=== PATIENT | female | born 1930 | race Caucasian/White ===

== ENCOUNTER 2016-12-18 17:18 | Emergency (ER) | payer OTHER, MEDICARE ==
[2016-12-18 17:26] VITALS: TEMP 97.5; O2SAT 95
--- NOTE | 2016-12-18 18:49 | EDPHY ---
HPI/HX/ROS/PE/MDM Narrative: CHIEF COMPLAINT: Skin tear HPI: The patient is an anticoagulated 86 y/o female complaining of a skin tear to her left kulkarni. She is on Coumadin for atrial fibrillation. She describes opening the car door into her left kulkarni about 2 hours ago. She had enough bleeding that she came to the ED for evaluation. She had been able to walk without issue. She is also requesting an updated tetanus vaccination. REVIEW OF SYSTEMS: Aside from elements discussed in the HPI, a comprehensive 10-point review of systems was reviewed and is negative. PMH: Atrial fibrillation - Coumadin SOCIAL HISTORY: Lives in [place] PHYSICAL EXAM: General:Patient is alert, in no acute distress. Skin: Normal color. No rash. Warm and dry. 3cm curvilinear laceration to left anterior kulkarni with no active bleeding Extremities: Normal appearance. Full range of motion. Neuro: Oriented x3. Normal motor function. Normal sensory function. ED Course: Tetanus vaccination administered. Plan for wound care and discharge home with infection precautions. She agrees with plan. MDM: This patient presents with a minor skin tear to her kulkarni. Her presentation is complicated by anticoagulation therapy, but thankfully there is no active bleeding on my exam. The wound was cleaned and she will be given a pressure wrap. I do not think there is indication for glue at this time. General Time Seen by Provider: 12/18/16 18:44 Initial Vital Signs: Initial Vital Signs Temperature (C) 36.4 C 12/18/16 17:21 Heart Rate 78 12/18/16 17:21 Respiratory Rate 18 12/18/16 17:21 Blood Pressure 120/64 12/18/16 17:21 O2 Sat (%) 95 12/18/16 17:21 O2 Delivery Mode Room Air Allergies/Adverse Reactions: codeine Allergy (Verified 12/18/16 17:20) fentanyl Allergy (Verified 12/18/16 17:20) ibuprofen Allergy (Verified 12/18/16 17:20) morphine Allergy (Verified 12/18/16 17:20) Home Medications: Medication Instructions Recorded LEVOTHYROXINE 05/01/10 Warfarin Sodium [Coumadin 5MG (*)] 01/23/16 Dronedarone HCl [Multaq 400 mg (*)] 400 mg PO BIDMEAL #60 tab 09/29/16 Departure - Departure Disposition: Home, Routine, Self-Care Clinical Impression: Skin tear Condition: Good Instructions: Acute Wound Care (ED), Skin Tear (ED) Additional Instructions: 1. Keep bandage clean and dry for the next 1-2 days. 2. Follow up with your primary care provider for any symptoms not improved over the next 3-4 days. 3. Use Tylenol as directed on the packaging if needed for pain for the next 2-3 days. 4. Return to the ED for signs of infection including fever, dramatic increase in redness or swelling, pus draining from the wound, or severe pain. Referrals: Kenneth Boyer MD [Primary Care Provider] - As per Instructions Report Scribed for: Baldemar Lyons Report Scribed by: Nella Moffett Date of Report: 12/18/16 Time of Report: 18:46 Physician Review and Approval Statement: Portions of this note were transcribed by an ED scribe. I personally performed the history, physical exam, and medical decision making; and confirm the accuracy of the information in the transcribed note.
[2016-12-18 19:21] VITALS: BP 122/78; PULSE 88; RESP 16
== END 2016-12-18 19:22 | disposition home or self-care (01) ==
DX: S81.812A Laceration without foreign body, left lower leg, initial encounter (principal); Z79.01 Long term (current) use of anticoagulants; W22.8XXA Striking against or struck by other objects, initial encounter; Y93.89 Activity, other specified

== ENCOUNTER 2016-12-27 14:31 | Inpatient (IN) | payer OTHER, MEDICARE ==
[2016-12-27] MEDS ORDERED: IPRATROPIUM/ALBUTEROL 3 ML DEYVIAL IH ONE (14:58)
[2016-12-27] MEDS ORDERED: ONDANSETRON 4 MG/2 ML VIAL IVP ONE (15:00)
--- NOTE | 2016-12-27 15:06 | EDPHY ---
H & P Stated Complaint: cough/sob Time Seen by Provider: 12/27/16 14:45 HPI/ROS: CHIEF COMPLAINT: Shortness of breath HISTORY OF PRESENT ILLNESS: Patient is an 86-year-old female who complains of a mild cough and shortness of breath for the last week. She was seen by Dr. Victoria Alvarenga just prior to arrival and sent here for rule out pneumonia. She is not hypoxic. She denies any history of respiratory Disease. She does have a history of atrial fibrillation status post ablation is currently on Multaq. She has not had a fever or sore throat. She does have mild sinus congestion. No headache or abdominal pain. No vomiting or diarrhea. REVIEW OF SYSTEMS: Constitutional: denies: chills, fever, recent illness, recent injury EENTM: denies: blurred vision, double vision, nose congestion Respiratory: See HPI Cardiac: denies: chest pain, irregular heart rate, lightheadedness, palpitations Gastrointestinal/Abdominal: denies: abdominal pain, diarrhea, nausea, vomiting, blood streaked stools Genitourinary: denies: dysuria, frequency, hematuria, pain Musculoskeletal: denies: joint pain, muscle pain Skin: denies: lesions, rash, jaundice, bruising Neurological: denies: headache, numbness, paresthesia, tingling, dizziness, weakness Hematologic/Lymphatic: denies: blood clots, easy bleeding, easy bruising Immunologic/allergic: denies: HIV/AIDS, transplant EXAM: GENERAL: Well-appearing, well-nourished and in no acute distress. HEAD: Atraumatic, normocephalic. EYES: Pupils equal round and reactive to light, extraocular movements intact, sclera anicteric, conjunctiva are normal. ENT: TMs normal, nares patent, oropharynx clear without exudates. Moist mucous membranes. NECK: Normal range of motion, supple without lymphadenopathy or JVD. LUNGS: Mild bilateral wheezing HEART: Regular rate and rhythm without murmurs, rubs or gallops. ABDOMEN: Soft, nontender, normoactive bowel sounds. No guarding, no rebound. No masses appreciated. BACK: No CVA tenderness, no spinal tenderness, step-offs or deformities EXTREMITIES: Normal range of motion, no pitting or edema. No clubbing or cyanosis. NEUROLOGICAL: Cranial nerves II through XII grossly intact. Normal speech, normal gait. 5/5 strength, normal movement in all extremities, normal sensation PSYCH: Normal mood, normal affect. SKIN: Warm, dry, normal turgor, no visible rashes or lesions. Source: Patient Exam Limitations: No limitations - Personal History Current Tetanus/Diphtheria Vaccine: Unsure - Medical/Surgical History Hx Asthma: No Hx Chronic Respiratory Disease: No Hx Diabetes: No Hx Cardiac Disease: Yes Hx Renal Disease: No Hx Cirrhosis: No Hx Alcoholism: No Hx HIV/AIDS: No Hx Splenectomy or Spleen Trauma: No Other PMH: Sinus problems for years. double knee replacements, backs surgery for stenosis. fx rt femur. thyroid. neuropathy. afib/flutter with recent ablation - Family History Significant Family History: Hypertension - Social History Smoking Status: Former smoker Alcohol Use: Sober Drug Use: None Constitutional: Initial Vital Signs Temperature (C) 36.3 C 12/27/16 14:39 Heart Rate 72 12/27/16 14:39 Respiratory Rate 30 H 12/27/16 14:39 Blood Pressure 172/97 H 12/27/16 14:39 O2 Sat (%) 95 12/27/16 14:39 O2 Delivery Mode Room Air O2 (L/minute) 3 Allergies/Adverse Reactions: codeine Allergy (Verified 12/27/16 14:37) fentanyl Allergy (Verified 12/27/16 14:37) ibuprofen Allergy (Verified 12/27/16 14:37) morphine Allergy (Verified 12/27/16 14:37) Home Medications: Medication Instructions Recorded LEVOTHYROXINE 05/01/10 Warfarin Sodium [Coumadin 5MG (*)] 01/23/16 Dronedarone HCl [Multaq 400 mg (*)] 400 mg PO BIDMEAL #60 tab 09/29/16 Medical Decision Making - Diagnostics EKG Interpretation: An EKG obtained and was read and documented in trace view. Please see trace view for full reading and report. Sinus rhythm, no acute ischemic changes ED Course/Re-evaluation: Patient does feel better after a DuoNeb. Her x-ray is consistent with pneumonitis. She has wheezes on a to will treat her with steroids and albuterol and antibiotics. vital signs are stable. We are awaiting the rest of her lab work. 4:30 p.m. we discussed the test results. The patient desaturated to 84% on room air. She is on oxygen now at 93%. She has had the symptoms for 5 days and is outside of the window for Tamiflu. She did receive a dose of antibiotics up front. She she does me criteria for severe sepsis based on her INR although she is on Coumadin. I will give her fluid bolus. She does not meet criteria for septic shock. Differential Diagnosis: Partial list of the Differential diagnosis considered include but were not limited to; influenza, pneumonia, gastritis, diarrhea, sepsis,food poisoning and although unlikely based on the history and physical exam, I also considered urinary tract infection, pneumonia. I discussed these differential diagnoses and the plan with the patient as well as the usual and expected course. The patient understands that the diagnosis is provisional and that in medicine we are not always correct and that further workup is often warranted. Usual and customary warnings were given. All of the patient's questions were answered. The patient was instructed to return to the emergency department should the symptoms at all worsen or return, otherwise to followup with the physician as we discussed. - Data Points Laboratory Results: Laboratory Results 12/27/16 15:10 12/27/16 15:10 12/27/16 12/27/16 12/27/16 15:50 15:10 15:10 WBC RBC Hgb Hct MCV MCH MCHC RDW Plt Count MPV Neut % (Auto) Lymph % (Auto) Door % (Auto) Eos % (Auto) Baso % (Auto) Nucleat RBC Rel Count Absolute Neuts (auto) Absolute Lymphs (auto) Absolute Monos (auto) Absolute Eos (auto) Absolute Basos (auto) Absolute Nucleated RBC Immature Gran % Immature Gran # PT 21.6 SEC H SEC (12.0-15.0) INR 1.87 H (0.83-1.16) APTT 45.3 SEC H SEC (23.0-38.0) D-Dimer 0.44 ug/mLFEU ug/mLFEU (0.00-0.50) VBG Lactic Acid 1.3 mmol/L mmol/L (0.7-2.1) Sodium Potassium Chloride Carbon Dioxide Anion Gap BUN Creatinine Estimated GFR Glucose Calcium Total Bilirubin Troponin I Influenza Typ A,B (DFA) POSITIVE FOR FLU A H (NEGATIVE) 12/27/16 12/27/16 15:10 15:10 WBC 5.91 10^3/uL 10^3/uL (3.80-9.50) RBC 4.06 10^6/uL L 10^6/uL (4.18-5.33) Hgb 12.2 g/dL L g/dL (12.6-16.3) Hct 36.1 % L % (38.0-47.0) MCV 88.9 fL fL (81.5-99.8) MCH 30.0 pg pg (27.9-34.1) MCHC 33.8 g/dL g/dL (32.4-36.7) RDW 13.6 % % (11.5-15.2) Plt Count 175 10^3/uL 10^3/uL (150-400) MPV 10.2 fL fL (8.7-11.7) Neut % (Auto) 75.4 % H % (39.3-74.2) Lymph % (Auto) 12.4 % L % (15.0-45.0) Door % (Auto) 9.1 % % (4.5-13.0) Eos % (Auto) 2.5 % % (0.6-7.6) Baso % (Auto) 0.3 % % (0.3-1.7) Nucleat RBC Rel Count 0.0 % % (0.0-0.2) Absolute Neuts (auto) 4.45 10^3/uL 10^3/uL (1.70-6.50) Absolute Lymphs (auto) 0.73 10^3/uL L 10^3/uL (1.00-3.00) Absolute Monos (auto) 0.54 10^3/uL 10^3/uL (0.30-0.80) Absolute Eos (auto) 0.15 10^3/uL 10^3/uL (0.03-0.40) Absolute Basos (auto) 0.02 10^3/uL 10^3/uL (0.02-0.10) Absolute Nucleated RBC 0.00 10^3/uL 10^3/uL (0-0.01) Immature Gran % 0.3 % % (0.0-1.1) Immature Gran # 0.02 10^3/uL 10^3/uL (0.00-0.10) PT INR APTT D-Dimer VBG Lactic Acid Sodium 134 mEq/L mEq/L (134-144) Potassium 4.7 mEq/L mEq/L (3.5-5.2) Chloride 97 mEq/L mEq/L (97-110) Carbon Dioxide 24 mEq/l mEq/l (22-31) Anion Gap 13 mEq/L mEq/L (8-16) BUN 16 mg/dL mg/dL (7-23) Creatinine 0.9 mg/dL mg/dL (0.6-1.0) Estimated GFR 59 Glucose 94 mg/dL mg/dL (70-100) Calcium 9.8 mg/dL mg/dL (8.5-10.4) Total Bilirubin 1.1 mg/dL mg/dL (0.1-1.4) Troponin I < 0.012 ng/mL ng/mL (0-0.034) Influenza Typ A,B (DFA) Medications Given: Discontinued Medications Albuterol/Ipratropium (Duoneb) 3 ml IH EDNOW ONE Stop: 12/27/16 14:59 Last Admin: 12/27/16 15:05 Dose: 3 ml Sodium Chloride (Ns) 1,000 mls @ 0 mls/hr IV ONCE ONE PRN Reason: Wide Open Stop: 12/27/16 17:13 Last Admin: 12/27/16 15:15 Dose: 1,000 mls Levofloxacin (Levaquin) 750 mg PO EDNOW ONE PRN Reason: Protocol Stop: 12/27/16 15:33 Last Admin: 12/27/16 15:47 Dose: 750 mg Ondansetron HCl (Zofran) 4 mg IVP EDNOW ONE Stop: 12/27/16 15:01 Last Admin: 12/27/16 15:15 Dose: 4 mg Departure - Departure Disposition: [facility] Acute Clinical Impression: Influenza, Hypoxia, Severe sepsis Condition: Fair
--- NOTE | 2016-12-27 15:30 | CPEKG ---
Heart Rate: 77 RR Interval: 779 P-R Interval: 200 QRSD Interval: 94 QT Interval: 428 QTC Interval: 485 P Santo: 43 QRS Santo: 56 T Wave Santo: 37 EKG Severity - NORMAL ECG - EKG Impression: SINUS RHYTHM Electronically Signed By: Raleigh Mccollum 27-Dec-2016 15:33:59
[2016-12-27 15:37] LABS: % IMMATURE GRANULYOCYTES 0.3 % (0.0-1.1); ABSOLUTE IMMATURE GRANULOCYTES 0.02 10^3/uL (0.00-0.10); ADD DIFF? NO; ADD MORPH? NO; ADD SCAN? NO; ATYPICAL LYMPHOCYTE FLAG 50 (0-99); FRAGMENT RBC FLAG 0 (0-99); HEMATOCRIT 36.1 % (38.0-47.0); HEMOGLOBIN 12.2 g/dL (12.6-16.3); LEFT SHIFT FLG 0 (0-99); LIPEMIA HEMOLYSIS FLAG 90 (0-99); MEAN CELL HEMOGLOBIN CONCENTR. 33.8 g/dL (32.4-36.7); MEAN CELL VOLUME 88.9 fL (81.5-99.8); MEAN PLATELET VOLUME 10.2 fL (8.7-11.7); PLATELET CLUMPS FLAG 0 (0-99); PLATELET COUNT 175 10^3/uL (150-400); RED BLOOD CELL COUNT 4.06 10^6/uL (4.18-5.33); RED CELL DISTRIBUTION WIDTH 13.6 % (11.5-15.2)
[2016-12-27 15:49] LABS: INR 1.87 (0.83-1.16); PROTIME(PATIENT) 21.6 SEC (12.0-15.0)
[2016-12-27 15:54] LABS: APTT 45.3 SEC (23.0-38.0)
[2016-12-27 15:56] LABS: ANION GAP 13 mEq/L (8-16); BILIRUBIN,TOTAL 1.1 mg/dL (0.1-1.4); CALCIUM 9.8 mg/dL (8.5-10.4); CARBON DIOXIDE 24 mEq/l (22-31); CHLORIDE 97 mEq/L (97-110); CREATININE 0.9 mg/dL (0.6-1.0); GLOMERULAR FILTRATION RATE 59; GLUCOSE 94 mg/dL (70-100); POTASSIUM 4.7 mEq/L (3.5-5.2); SODIUM 134 mEq/L (134-144)
[2016-12-27 16:07] LABS: TROPONIN I < 0.012 ng/mL (0-0.034)
[2016-12-27] MEDS ORDERED: NS 1,000 ML BAG *FOR SEPSIS ORDER SET ONLY IV ONE (16:55)
[2016-12-27] MEDS ORDERED: NS 1,000 ML IV ONE (17:12)
[2016-12-27] MEDS ORDERED: ONDANSETRON DISINTEGRATING 4 MG TAB PO PRN (17:17)
[2016-12-27] MEDS ORDERED: ONDANSETRON 4 MG/2 ML VIAL IVP PRN (17:17)
--- NOTE | 2016-12-27 18:30 | GHP ---
DATE OF ADMISSION: 12/27/2016 CHIEF COMPLAINT: Weakness, influenza A. HISTORY OF PRESENT ILLNESS: The patient is an 86-year-old female with history of atrial fibrillation, hypothyroidism, presenting with diffuse upper respiratory symptoms for a week. Last Tuesday she began having a mild sore throat, along with a dry cough. She called her PCP, Dr. Boyer, and was prescribed Robitussin with codeine. Her cough did improve; however, she discontinued this medication due to nausea. 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 She has not been sleeping due to the cough. She came in today from her PCP with nausea and weakness. Reports decreased p.o. intake, as well as myalgias. She was found to be hypoxic to full 84% in the emergency room. She did receive a flu shot this year. She uses 2 L of oxygen at night, which is her baseline. REVIEW OF SYSTEMS: I completed a 10-point review of systems, negative except as noted in HPI. PAST MEDICAL HISTORY: 1. Permanent atrial fibrillation. 2. Hypothyroidism. 3. Chronic hypoxemic respiratory failure, 2 L at night. PAST SURGICAL HISTORY: 1. Bilateral TKA. 2. Back surgery, L4-L5. 3. Back surgery for stenosis, L2-L3. 4. Femur fracture repaired 2 times on the right. FAMILY HISTORY: Mother was healthy, at age 94. Father of an MO in his 70s. SOCIAL HISTORY: Lives alone in [place]. She has a son and 2 daughters close by. She drinks wine socially. No illicits or tobacco. Uses a cane. 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 ALLERGIES: Codeine, nausea. Fentanyl, ibuprofen and morphine. HOME MEDICATIONS: 1. Coumadin 5 mg daily. 2. Levothyroxine unclear dose. 3. Multaq 400 mg twice daily. PHYSICAL EXAM: VITAL SIGNS: Temperature 37.1, blood pressure is 119/71, heart rate 70s, respirations 16, 84% on room air, 96% on 3 L. GENERAL: Tired appearing. HEENT: PERRLA. EOMI. Dry mucous membranes. CV: Regular rate and rhythm. No murmurs, gallops, or rubs. LUNGS: Rhonchorous bilateral bases. ABDOMEN: Soft, nontender, nondistended. Positive bowel sounds. : No Michaels. No suprapubic tenderness. MUSCULOSKELETAL: Moving all 4 extremities. NEUROLOGIC: 2-12 intact. PSYCHIATRIC: Alert and oriented x3. SKIN: Has a small laceration over the left kulkarni, varicose veins. NEUROLOGIC: 2-12 intact. PSYCHIATRIC: Alert and oriented x3. Did repeat the same information over an over during interview. LABORATORY DATA: WBC is 5.9, hemoglobin 12, hematocrit 36, platelets 175. INR is 1.8, PT 21. Lactic acid was 1.7. Sodium 134, potassium 4.7, chloride 97, carbon dioxide 24, BUN 16, creatinine 0.9, calcium 9.8. Troponin less than 0.012. Positive for influenza A. EKG personally reviewed by me, normal sinus rhythm. Heart rates in the 70s. No ST elevation or depression. Chest x-ray, personally reviewed by me, hyperexpanded lung monge. No opacity. No effusion. ASSESSMENT AND PLAN: 1. [id number] hypoxemic respiratory failure: due to influenza A. No evidence of pneumonia on x-ray. Given that it has been greater than a week, will not treat with Tamiflu. Cont supportive care with IV fluids and antitussives. 2. Influenza A: outside timeframe for Tamiflu, supportive cares. 3. Permanent atrial fibrillation: Rate controlled on Multaq, cont Coumadin. 4. Hypothyroidism: Will continue Synthroid. 5. Weakness secondary to acute illness: Patient does use a cane at home. Will have physical therapy evaluate in the morning. 6. Deep venous thrombosis prophylaxis: Coumadin 7. Diet: Regular. 8. Patient warrants admission given acute hypoxia and PT evaluation to prevent falls and subsequent harm. /[id number]/MODL MTDD
[2016-12-27] MEDS: DRONEDARONE HCL 400 MG TAB PO SCH (18:43)
[2016-12-27] MEDS: ACETAMINOPHEN 325 MG TAB PO PRN (18:44)
[2016-12-27] MEDS: BENZONATATE 100 MG CAP PO PRN (18:44)
[2016-12-27] MEDS ORDERED: WARFARIN SODIUM 5 MG TAB PO ONE (19:00)
[2016-12-27] MEDS: guaiFENesin 600 MG TAB.ER PO SCH (20:39)
[2016-12-28] MEDS: traZODone 50 MG TAB PO SCH ×2 (00:32→22:04)
[2016-12-28] MEDS: BENZONATATE 100 MG CAP PO PRN ×4 (02:08→23:50)
[2016-12-28] MEDS ORDERED: guaiFENesin 200 MG/10 ML UDCUP PO PRN (02:28)
[2016-12-28] MEDS: ACETAMINOPHEN 325 MG TAB PO PRN ×3 (03:18→22:04)
[2016-12-28 06:00] LABS: INR 2.44 (0.83-1.16); PROTIME(PATIENT) 26.7 SEC (12.0-15.0)
[2016-12-28] MEDS: DRONEDARONE HCL 400 MG TAB PO SCH ×2 (08:13→18:00)
[2016-12-28] MEDS: guaiFENesin 600 MG TAB.ER PO SCH ×2 (08:13→20:10)
[2016-12-28] MEDS ORDERED: ENOXAPARIN 40 MG/0.4 ML SYR SC SCH (09:00)
[2016-12-28] MEDS ORDERED: WARFARIN SODIUM 5 MG TAB PO ONE (18:00)
[2016-12-28] MEDS ORDERED: POLYETHYLENE GLYCOL 3350 17 GM PKT PO ONE (18:59)
[2016-12-28] MEDS ORDERED: POLYETHYLENE GLYCOL 3350 17 GM PKT PO PRN (18:59)
--- NOTE | 2016-12-28 19:00 | HOSPPROG ---
Hospitalist Progress Note Assessment/Plan: DIAGNOSES: Acute influenza with mild pneumonitis but without neurologic complications Mild acute respiratory failure resolved Generalized weakness, improving PLANS: -continue hydration and supportive care -agree that Tamiflu will not be helpful given the duration of illness before presentation -DVT prophylaxis -consider possible discharge tomorrow SUBJECTIVE: States she had cough through the night but is not coughing much today Not short of breath, no muscle pains headaches comma chest-pain No nausea vomiting eating well No chills or sweats OBJECTIVE Vitals reviewed: Stable without fever Exam: alert oriented skin warm dry color ok resps not labored lungs clear BSs heart regular abd soft nondistended nontender, bowel sounds present Objective: Vital Signs Temp Pulse Resp BP Pulse Ox 36.6 C 60 14 97/58 L 92 12/28/16 16:00 12/28/16 16:00 12/28/16 16:00 12/28/16 16:00 12/28/16 16:00 12/27/16 12/28/16 12/29/16 06:59 06:59 06:59 Intake Total 2350 750 Output Total 300 Balance 2050 750 PT 26.7 SEC (12.0-15.0) H 12/28/16 04:52 INR 2.44 (0.83-1.16) H 12/28/16 04:52 ICD10 Worksheet Patient Problems: Problems Problem Status Onset Hypoxia Acute Influenza Acute Severe sepsis Acute
[2016-12-29] MEDS ORDERED: LEVOTHYROXINE 100 MCG TAB PO SCH (06:00)
[2016-12-29 06:27] LABS: INR 2.72 (0.83-1.16); PROTIME(PATIENT) 29.2 SEC (12.0-15.0)
[2016-12-29] MEDS ORDERED: DRONEDARONE HCL 400 MG TAB PO SCH (08:00)
[2016-12-29] MEDS: DRONEDARONE HCL 400 MG TAB PO SCH (09:13)
[2016-12-29] MEDS: guaiFENesin 600 MG TAB.ER PO SCH (09:13)
[2016-12-29] MEDS: BENZONATATE 100 MG CAP PO PRN (09:21)
[2016-12-29 09:26] VITALS: BP 115/65; PULSE 61; RESP 14; TEMP 97.9; O2SAT 89
--- NOTE | 2016-12-29 14:05 | PDDCSUM ---
Discharge Summary Discharge Summary: DISCHARGE DIAGNOSES: -acute influenza a with mild pneumonitis and hypoxemia, no neurologic abnormalities PROCEDURES: CT scan of chest with very mild apical inflammatory patches, no dense alveolar infiltrates or air bronchograms HOSPITAL COURSE SUMMARY: This patient came in with primary complaint of cough was also having some mild dyspnea and fever. Her symptoms have been present for approximately 8 days upon her arrival here. She was found to have positive serology for influenza a. CT scan of chest showed some very subtle inflammatory patches in the lung apices suggesting possible viral pneumonitis. The patient was admitted the hospital and treated symptomatically and with oxygen. She improved quite well during her stay here. At this point she is not requiring any oxygen beyond her usual 2 L nasal cannula during sleep. She is up ambulating in the hallways eating well with no chest pain or shortness of breath or fever. She is stable for discharge to home MEDICATION CHANGES: Addition of p.r.n. Mucinex and Tessalon Perles FOLLOW-UP PLAN: With primary care physician if she has any difficulty resolving her remaining symptoms
[2016-12-29] MEDS ORDERED: WARFARIN SODIUM 5 MG TAB PO SCH (16:00)
[2016-12-30] MEDS ORDERED: WARFARIN SODIUM 5 MG TAB PO SCH (16:00)
== END 2016-12-29 14:22 | disposition home or self-care (01) | DRG 194 ==
LOC: F3E 17:20 → OBSVTOIN 12-28 19:15
PROVIDERS: ADMIT Internal Medicine; ATTEND Internal Medicine
DX: J10.00 Influenza due to other identified influenza virus with unspecified type of pneumonia (principal); J96.11 Chronic respiratory failure with hypoxia; I48.2 Chronic atrial fibrillation; Z79.01 Long term (current) use of anticoagulants; E03.9 Hypothyroidism, unspecified; Z96.653 Presence of artificial knee joint, bilateral; Z87.891 Personal history of nicotine dependence
CPT/HCPCS: 96374; 97161-GP; G0378; G0463-PO; G8978-GP-CI; G8979-GP-CI; J2405

== ENCOUNTER → 2018-08-07 | Outpatient (CLI) | payer OTHER, MEDICARE | LOC: BHFA 13:30 | PROVIDERS: ATTEND Internal Medicine Cardiovascular Disease | DX: I48.91 Unspecified atrial fibrillation (principal); Z95.0 Presence of cardiac pacemaker ==